=== PATIENT | female | born 1960 | race Caucasian/White ===

== ENCOUNTER 2021-05-13 18:06 | Emergency (ER) | payer BC ==
--- OUTSIDE RECORDS SUMMARY | 2021-05-13 18:10 | XMS REPORT | Continuity of Care Document ---
:1960 Author Organization [facility] t Address [address] [place] [address] Care Team Providers Name Role Phone Doroteo Duran Attending Clinician Unavailable SAMMI Attending Clinician Unavailable Thierno ROBERTSON, A Attending Clinician MARKELL MCCOY Attending Clinician Unavailable Lab, Fam Pob I Attending Clinician Unavailable Jaclyn Leal Attending Clinician Jaclyn HERNÁNDEZ Attending Clinician Unavailable Doctor Unassigned, Name Attending Clinician Unavailable Sammi Admitting Clinician Unavailable Physician, Primary or Family Admitting Clinician Unavailabl e Payers Payer Name Policy Type Policy Number Effective Date Expiration Date S dariel [facility] [id number] 2014 00:00:00 Problems Condition Condition Condition Status Onset Resolution Last Treating Co mments Source Name Details Category Date Date Treatment Clinician Date Multiple Multiple Disease Active [facility] ne[facility] nevi 6-14 College 00:00: of 00 Medicin e Cutaneous Cutaneous Disease Active [facility] tag tag 8-15 College 00:00: of 00 Medicin e Keratosis Keratosis Disease Active [facility] seborrheic seborrheic 4-17 Co llege a a 00:00: of 00 Medicin e Benign Benign Disease Active [facility] neoplasm neoplasm 417 Colleg e of other of other 00:00: of specified specified 00 Medi lorna sites of sites of e skin skin Lentigo Lentigo Disease Active [facility] [address] [place] 00:00: of 00 Medicin e Keratosis Keratosis Disease Active [facility] seborrheic seborrheic 4-17 Co llege a a 00:00: of 00 Medicin e Milium Milium Disease Active [facility] [address] [place] 00:00: of 00 Medicin e AK AK Disease Active [facility] (actinic (actinic 4-17 Colleg e keratosis) keratosis) 00:00: of 00 Medicin e Neoplasm Neoplasm Disease Active [facility] r of of 15 College uncertain uncertain 00:00: of behavior behavior 00 Medici n of skin of skin e Allergies, Adverse Reactions, Alerts Allergy Allergy Status Severity Reaction(s) Onset Inactive Treating Comm ents Source Name Type Date Date Clinician NO KNOWN Drug Active Univers ALLERGIE Class ity of [facility] Social History Social Habit Start Date Stop Date Quantity Comments Source Exposure to Yes [facility] SARS-CoV-2 (event) [facility] Tobacco use and 2011-01-16 2011-01-16 Never used [facility] llege of exposure 00:00:00 00:00:00 Medicine Sex [birth year] [facility] llege of 00:00:00 00:00:00 Medicine Smoking Status Start Date Stop Date Source Unknown if ever smoked [facility] Never smoker [facility] o f Medicine Medications Ordered Filled Start Stop Current Ordering Indication Dosage Frequency Signature Comments Components Source Medication Medication Date Date Medication? Clinician (SIG) Name Name vane Yes Apply to Brandon archibald ne 5-10 affected College (KENALOG) 00:00: area 2 of 0.1 % 00 times Medicin ointment daily for e up to two weeks, may repeat if needed after 3-5 day break, for body only tacrolimus Yes Apply [facility] (PROTOPIC) 5-10 topically Michael ege 0.1 % 00:00: twice a of ointment 00 day as Medicin needed for e eyelids doxycycline Yes Take one [employer] (VIBRAMYCIN 3-17 pill twice Co llege ) 100 MG 00:00: a day of capsule 00 until Medicin clear plus e one additional week doxycycline Yes Take one [facility] (VIBRAMYCIN 3-17 pill twice Co llege ) 100 MG 00:00: a day of capsule 00 until Medicin clear plus e one additional week SYNTHROID Yes [facility] 137 MCG 6-05 College tablet 00:00: of 00 Medicin e SYNTHROID Yes [facility] 137 MCG 6-05 College tablet 00:00: of 00 Medicin e Vital Signs Vital Name Observation Time Observation Value Comments Source Body height 2020-09-10 18:14:00 162.6 cm [facility] ollege of Medicine Body weight 2020-09-10 18:14:00 72.576 kg [facility] ollege of Medicine BMI 2020-09-10 18:14:00 27.46 kg/m2 [facility] ollege of Medicine Systolic blood 2019-07-19 13:26:00 151 mm[Hg] [facility] of pressure Medicine Diastolic blood 2019-07-19 13:26:00 77 mm[Hg] [facility] of pressure Medicine Heart rate 2019-07-19 13:26:00 58 /min [facility] ollege of Medicine Body height 2019-07-19 13:26:00 162.6 cm [facility] ollege of Medicine Body weight 2019-07-19 13:26:00 72.576 kg [facility] ollege of Medicine BMI 2019-07-19 13:26:00 27.46 kg/m2 [facility] ollege of Medicine Systolic blood 2019-07-19 13:26:00 151 mm[Hg] [facility] of pressure Medicine Diastolic blood 2019-07-19 13:26:00 77 mm[Hg] [facility] of pressure Medicine Heart rate 2019-07-19 13:26:00 58 /min [facility] ollege of Medicine Body height 2019-07-19 13:26:00 162.6 cm [facility] C ollege of Medicine Body weight 2019-07-19 13:26:00 72.576 kg [facility] BMI 2019-07-19 13:26:00 27.46 kg/m2 [facility] Procedures This patient has no known procedures. Plan of Care Planned Activity Planned Date Details Comments Source Future Scheduled 2020-09-10 HI TANGENTIAL BIOPSY Ordered: [facility] Test 18:34:56 SKIN SINGLE LESION 09/10/2020 of [facility] ne [code = 81611] Future Scheduled 2020-09-10 Screening for malignant [facility] Test 13:37:52 neoplasm of cervix of Medici ne (procedure) [code = 197234790] Future Scheduled 2020-09-10 ZOSTER VACCINE (1 of 2) [facility] College Test 13:37:52 [code = ZOSTER VACCINE of Me dicine (1 of 2)] Future Scheduled 2020-09-10 FLU VACCINE > 6 MONTHS [facility] Test 13:37:52 [code = FLU VACCINE > 6 of M edicine MONTHS] Future Scheduled 2020-09-10 TETANUS SHOT (ADULT) [facility] [place] Test 13:37:52 [code = TETANUS SHOT of Medi cine (ADULT)] Future Scheduled 2020-09-10 Screening for malignant [facility] Test 13:37:52 neoplasm of colon of Medicin e (procedure) [code = 988701621] Future Scheduled 2020-09-10 Screening for malignant [facility] Test 13:37:52 neoplasm of breast of Medici ne (procedure) [code = 713303444] Future Scheduled 2020-09-10 BMI FOLLOW UP PLAN [facility] [employer] Test 13:37:52 [code = BMI FOLLOW UP of Med icine PLAN] Future Scheduled 2020-09-10 Hepatitis C screening [facility] Test 13:37:52 (procedure) [code = of Medic ine 493081279] Future Scheduled 2020-09-10 Human immunodeficiency [facility] Test 13:37:52 virus screening of Medicine (procedure) [code = 777773320] Future Scheduled COLON CANCER SCREENING: [facility] Test COLONOSCOPY [code = of Medic ine COLON CANCER SCREENING: COLONOSCOPY] Future Scheduled MAMMOGRAM ANNUAL [facility]] of Medic ine Future Scheduled TETANUS SHOT (ADULT) [facility] Test [code = TETANUS SHOT of Medi cine (ADULT)] Future Scheduled BMI FOLLOW UP PLAN [facility] r College Test [code = BMI FOLLOW UP of Med icine PLAN] Future Scheduled HEPATITIS C SCREENING [employer] Test [code = HEPATITIS C of Medic ine SCREENING] Future Scheduled HIV SCREENING [code = [employer] Test HIV SCREENING] of Medicine Future Scheduled CERVICAL CANCER [facility] C ollege Test SCREENING 3 YEAR FOLLOW of M edicine UP [code = CERVICAL CANCER SCREENING 3 YEAR FOLLOW UP] Future Scheduled FLU VACCINE > 6 MONTHS [employer] Test [code = FLU VACCINE > 6 of M edicine MONTHS] Encounters Start End Encounter Admission Attending Care Care Encounter Source Date/Time Date/Time Type Type Clinicians Facility Department ID 2020-05-17 [id number] 10:00:00 Talia [id number] [facility] 2021-02-26 2021-02-26 Outpatient MEHDI CHAPA [facility] [id number] [place] 00:00:00 00:00:00 783 Method i 2021-02-26 2021-02-26 Outpatient [facility] [id number] [place] 00:00:00 00:00:[address] 2020-09-10 2020-09-10 Office Julio CesarSHAYE hudsonSukhdeep [id number] [facility] 13:10:29 13:48:40 Visit Wanda A AMBULATOR 350.1.13.21 College Y 0.2.7.2.686 of [id number] Medi lorna 300 e 2020-09-05 2020-09-05 Outpatient Gavin MCCOY [facility] [id number] Univers 13:30:00 13:30:00 [facility]-09[facility]01 2020-09-01 Outpatient [facility] [id number] Univers 10:55:00 10:55:00 [facility] 2020-08-11 2020-08-11 Outpatient [facility] [id number] Univers 10:45:00 10:45:00 [facility] 2020-06-07 2020-06-07 [id number] 12:00:00 12:00:00 Talia [id number] [facility] [place] 2020-05-23 2020-05-23 Laboratory Lab, [facility] 1.2.840.114 [id number] 15:55:24 16:15:24 Only Fam Pob I Health 350.1.13.10 [place] 4.2.7.2.686 Professio [phone] [place] [address] [address] 2020-05-23 2020-05-23 Laboratory Lab, [facility] Fam Pob I [facility] 1.2. 840.114 [id number] Univers 15:55:24 16:15:24 Only Joana Hernández Health 350.1.13.10 ity of [place] 4.2.7.2.686 Arnoldo as Professio [id number] [place] [address] Office [address] 2020-05-23 2020-05-23 Outpatient R EDGAR, [facility] [id number] Univers 16:00:00 16:00:00 JOANA ortiz [facility] 2020-05-23 2020-05-23 Letter Doctor CROW 1.2.840.114 [id number] 00:00:00 00:00:00 (Out) Unassigned, JORDI 350.1.13.10 [place] [facility] 4.2.7.2.686 [id number] [facility] 2020-05-23 2020-05-23 Letter Doctor CROW 1.2.840.114 [id number] Univers 00:00:00 00:00:00 (Out) Unassigned, JORDI 350.1.13.10 ity of [place] [facility] 4.2.7.2.686 Arnoldo as [id number] [address] 2019-11-09 2019-11-09 Outpatient CHAYO Weiss JASMINA [id number] [facility] 12:00:00 12:00:00 Talia [id number] [facility] [place] 2019-09-30 2019-09-30 Outpatient MEHDI CHAPA [facility] [id number] [place] 00:00:00 00:00:[address] 2019-09-29 2019-09-29 Outpatient MEHDI CHAPA [facility] [id number] [place] 00:00:00 00:00:[address] 2019-07-19 2019-07-19 Office TIMOTHY Pa 1.2.840.114 [id number] 08:21:24 08:36:24 Visit Wanda Anaya AMBULATOR 350.1.13.21 Y 0.2.7.2.686 [id number] 2019-07-19 2019-07-19 Office TIMOTHY Pa 1.2.840.114 [id number] [facility] 08:21:24 08:36:24 Visit Wanda Anaya AMBULATOR 350.1.13.21 College Y 0.2.7.2.686 of [id number] Medi lorna 300 e Results Test Description Test Time Test Comments Results Result [facility] e Comments - US PELVIS 2020-05-17 COMPLETE 11:15:00 [facility] : 1960 Sex: F * Patient Name: FARZANEH CASTILLO Unit No: [id number] EXAMS: CPT CODE: [id number] US PELVIS COMPLETE 38975 PELVIC ULTRASOUND, 05/17/2020: COMPARISON: None CLINICAL HISTORY: PELVIC PAIN TECHNIQUE: Transabdominal and endovaginal scanning was performed. FINDINGS: The uterus measures 7.0 x 3.0 x 3.6 cm. The endometrial cavity is empty with a thickness of 2 mm. There is a 1.4 x 1.1 x 1.3 cm anterior intramural/submucosa l uterine fibroid. The right ovary measures 2.0 x 1.1 x 1.2 cm and appears normal. The left ovary measures 1.9 x 1.0 x 1.1 cm and appears normal. No free pelvic fluid noted. IMPRESSION: Small uterine fibroid, otherwise negative pelvic sonogram. at 1115 Reported and signed by: Jose Robin MD CC: Mehdi Chapa Technologist: Yohana Forman RDMS Probe: Trnscrbd D/ (1115) [email or web address] Orig Print D/T: S: 05/17/2020 (1118) [facility] NAME: JONATHANFARZANEH COOPER Radiology Department PHYS: Talia Edwards MD [address] : 1960 AGE: 59 SEX: F [place] [address] LOC: Cora.RAD PHONE #: [phone] EXAM DATE: 05/17/2020 STATUS: REG CLI FAX #: [phone] RAD NO: Page 1 Signed Report Patient Name: FARZANEH CASTILLO Unit No: [id number] EXAMS: CPT CODE: [id number] US PELVIS COMPLETE 31955 <Continued> [facility] NAME: CASTILLOFARZANEH Radiology Department PHYS: Talia Edwards MD [address] : 1960 AGE: 59 SEX: F [place] [address] LOC: Cora.RAD PHONE #: [phone] EXAM DATE: 05/17/2020 STATUS: REG CLI FAX #: [phone] RAD NO: Page 2 Signed Report - DUP AB/PEL/SC/LTD 2020-05-17 11:15:00 [facility] KENNETH : 1960 Sex: F * Patient Name: FARZANEH CASTILLO Unit No: [id number] EXAMS: CPT CODE: [id number] DUP AB/PEL/SC/LTD 36292 PELVIC ULTRASOUND, 05/17/2020: COMPARISON: None CLINICAL HISTORY: PELVIC PAIN TECHNIQUE: Transabdominal and endovaginal scanning was performed. FINDINGS: The uterus measures 7.0 x 3.0 x 3.6 cm. The endometrial cavity is empty with a thickness of 2 mm. There is a 1.4 x 1.1 x 1.3 cm anterior intramural/submucosa l uterine fibroid. The right ovary measures 2.0 x 1.1 x 1.2 cm and appears normal. The left ovary measures 1.9 x 1.0 x 1.1 cm and appears normal. No free pelvic fluid noted. IMPRESSION: Small uterine fibroid, otherwise negative pelvic sonogram. at 1115 Reported and signed by: Jose Robin MD CC: Mehdi Chapa Technologist: Yohana Forman RDMS Probe: Trnscrbd D/ (1115) [email or web address] Orig Print D/T: S: 05/17/2020 (1118) [facility] NAME: FARZANEH CASTILLO Radiology Department PHYS: LYLE Talia Quiñonez MD [address] : 1960 AGE: 59 SEX: F [place], [place] [address] LOC: Cora.RAD PHONE #: [phone] EXAM DATE: 05/17/2020 STATUS: REG CLI FAX #: [phone] RAD NO: Page 1 Signed Report Patient Name: FARZANEH CASTILLO Unit No: [id number] EXAMS: CPT CODE: [id number] DUP AB/PEL/SC/LTD 22166 <Continued> [facility] NAME: FARZANEH CASTILLO Radiology Department PHYS: Talia Edwards MD [address] : 1960 AGE: 59 SEX: F [place], [place] [address] LOC: Cora.RAD PHONE #: [phone] EXAM DATE: 05/17/2020 STATUS: REG CLI FAX #: [phone] RAD NO: Page 2 Signed Report - US TRANSVAGINAL 2020-05-17 W/PELVIS 11:15:00 [facility] : 1960 Sex: F * Patient Name: FARZANEH CASTILLO Unit No: [id number] EXAMS: CPT CODE: [id number] US TRANSVAGINAL W/PELVIS 38983 PELVIC ULTRASOUND, 05/17/2020: COMPARISON: None CLINICAL HISTORY: PELVIC PAIN TECHNIQUE: Transabdominal and endovaginal scanning was performed. FINDINGS: The uterus measures 7.0 x 3.0 x 3.6 cm. The endometrial cavity is empty with a thickness of 2 mm. There is a 1.4 x 1.1 x 1.3 cm anterior intramural/submucosa l uterine fibroid. The right ovary measures 2.0 x 1.1 x 1.2 cm and appears normal. The left ovary measures 1.9 x 1.0 x 1.1 cm and appears normal. No free pelvic fluid noted. IMPRESSION: Small uterine fibroid, otherwise negative pelvic sonogram. at 1115 Reported and signed by: Jose Robin MD CC: Mehdi Chapa Technologist: Yohana Forman [facility] Probe: [id number] Trnscrbd D/ (1115) [email or web address] Orig Print D/T: S: 05/17/2020 (1118) [facility] NAME: FARZANEH CASTILLO KENNETH Radiology Department PHYS: Talia Edwards MD [address] : 1960 AGE: 59 SEX: F [place] [address] LOC: Cora.RAD PHONE #: [phone] EXAM DATE: 05/17/2020 STATUS: REG CLI FAX #: [phone] RAD NO: Page 1 Signed Report Patient Name: FARZANEH CASTILLOA Unit No: [id number] EXAMS: CPT CODE: [id number] US TRANSVAGINAL W/PELVIS 99572 <Continued> [facility] NAME: CASTILLOFARZANEH Radiology Department PHYS: Talia Edwards MD [address] : 1960 AGE: 59 SEX: F [place] [address] LOC: Cora.RAD PHONE #: [phone] EXAM DATE: 05/17/2020 STATUS: REG CLI FAX #: [phone] RAD NO: Page 2 Signed Report
--- NOTE | 2021-05-13 22:49 | ER ---
Nurse's Notes [facility] Name: Nidhi Maya Age: 60 yrs Sex: Female : 1960 Arrival Date: 05/13/2021 Time: 18:32 Bed Waiting Private MD: Diagnosis: Presentation: 05/13 18:37 Chief complaint: Patient states: Mid sternal CP gradually getting worse for a month. ll1 Today, her teeth feel tingly and pain noticed to R shoulder area. Slight cough/congestion, no fever. Coronavirus screen: Vaccine status: Patient reports receiving the 2nd dose of the covid vaccine. Client denies travel out of the [place] in the last 14 days. congestion, cough unrelated to allergies, Client presents with at least one sign or symptom that may indicate coronavirus-19. Standard/surgical mask placed on the client. Ebola Screen: Patient denies travel to an Ebola-affected area in the 21 days before illness onset. Initial Sepsis Screen: Does the patient meet any 2 criteria? No. Patient's initial sepsis screen is negative. Does the patient have a suspected source of infection? No. Patient's initial sepsis screen is negative. Risk Assessment: Do you want to hurt yourself or someone else? Patient reports no desire to harm self or others. Onset of symptoms was April 12, 2021. 18:37 Method Of Arrival: Ambulatory ll1 18:37 Acuity: MIRTHA 3 ll1 22:47 Note notified by registration pt did not want to wait any longer and left the ED. bb Triage Assessment: 18:40 General: Appears in no apparent distress. Behavior is calm, cooperative, appropriate ll1 for age. Pain: Complains of pain in chest. Cardiovascular: Reports chest pain, Capillary refill < 3 seconds JVD is absent Patient's skin is warm and dry. Historical: - Allergies: 18:39 No Known Allergies; ll1 - PMHx: 18:39 None; ll1 - PSHx: 18:39 None; ll1 - Immunization history:: Client reports receiving the 2nd dose of the Covid vaccine, Flu vaccine status is unknown. - Social history:: Smoking status: Patient denies any tobacco usage or history of. Vital Signs: 18:37 BP 161 / 84; Pulse 56; Resp 17; Temp 96.8; Pulse Ox 100% ; Weight 72.57 kg; Height 5 ll1 ft. 4 in. (162.56 cm); Pain 3/10; 18:37 Body Mass Index 27.46 (72.57 kg, 162.56 cm) ll1 ED Course: 18:32 Patient arrived in ED. ds1 18:39 Triage completed. ll1 18:40 Arm band placed on. ll1 Administered Medications: No medications were administered Outcome: 22:48 Patient left the ED. bb Signatures: Bianca George ds1 Lyric Lomas, RN RN bb Yury Baron RN RN ll1
[2021-05-13 23:11] VITALS: BP 161/84; TEMP 96.8; O2SAT 100
--- NOTE | 2021-05-15 07:51 | EKG ---
Test Date: 2021-05-13 Test Time: 18:41:26 Pediatric Pathologist: LML MEASUREMENT RESULTS: Intervals: Rate: 56 NM: 122 QRSD: 88 QT: 422 QTc: 407 [place]: P: 32 NM: 122 QRS: 67 T: 23 INTERPRETIVE STATEMENTS: Sinus bradycardia with sinus arrhythmia Otherwise normal ECG No previous ECG available for comparison Electronically Signed On 05-15-21 07:46:01 TOOL INSPECTOR by Petr Jean-Baptiste
== END 2021-05-13 22:48 | disposition left against medical advice (07) ==
LOC: ER 18:06
DX: Z53.21 Procedure and treatment not carried out due to patient leaving prior to being seen by health care provider (principal)
CPT/HCPCS: 93005; 99281